=== PATIENT | female | born 1935 | race African-American/Black ===

== ENCOUNTER 2021-08-02 07:07 | Inpatient (IN) | payer OTHER ==
[~2021-08-02] VITALS: Ht 152.4 cm; Wt 47.9 kg
[~2021-08-02 07:07] MED LIST: AMLO5TAB88 PO; ASPI-1497 PO; ATOR10TA PO; CLOP75TA15 PO; LISI10TA26 PO
[2021-08-02 08:12] LABS: BASOPHILS % 0.4 % (0.0-2.0); EOSINOPHILS % 0.6 % (0.0-5.0); HEMATOCRIT. 36.3 % (36.0-48.0); HEMOGLOBIN. 11.9 g/dL (12.0-16.0); LYMPHOCYTES % 7.1 % (20.0-50.0); MEAN CORPUSCULAR VOLUME 91.2 fL (81.0-99.0); MEAN PLATELET VOLUME 8.6 fl (7.4-10.4); MONOCYTES % 5.4 % (2.0-8.0); NEUTROPHILS % 86.5 % (40.0-76.0); PLATELET 167 x1000/uL (130-400); RED BLOOD CELL COUNT 3.98 mill/uL (4.2-5.4); RED CELL DISTRIBUTION WIDTH 13.7 % (11.6-14.6)
[2021-08-02 08:21] LABS: CHLORIDE 108 mEq/L (98-107)
[2021-08-02 08:53] LABS: CLARITY URINE CLEAR (CLEAR); COLOR URINE YELLOW (YELLOW); KETONES URINE NEGATIVE (NEGATIVE); LEUKOCYTE ESTERASE URINE NEGATIVE (NEGATIVE); NITRITE URINE NEGATIVE (NEGATIVE); OCCULT BLOOD URINE NEGATIVE (NEGATIVE); PROTEIN URINE 2+ (NEGATIVE); SPECIFIC GRAVITY URINE 1.022 (1.005-1.030)
[2021-08-02] MEDS ORDERED: MAGNESIUM/ALUMINUM HYDROXIDE/SIMETHICONE 30ML UDC PO PRN (10:45)
[2021-08-02] MEDS ORDERED: DOCUSATE SODIUM 100MG CAPSULE PO PRN (10:45)
[2021-08-02] MEDS ORDERED: ACETAMINOPHEN 325MG TABLET PO PRN (10:45)
[2021-08-02] MEDS ORDERED: IPRATROPIUM/ALBUTEROL 0.5-3(2.5)MG/3ML NEB NEB PRN (10:45)
[2021-08-02] MEDS ORDERED: GUAIFENESIN 200MG/10ML SUGAR FREE UDC PO PRN (10:45)
[2021-08-02] MEDS ORDERED: ONDANSETRON HCL 4MG/2ML INJ IV PRN (10:45)
[2021-08-02] MEDS: ENOXAPARIN 40MG/0.4ML SYR SUBCUT SCH (14:30)
[2021-08-02] MEDS: FAMOTIDINE 20MG TABLET PO SCH (14:34)
[2021-08-02] MEDS: LISINOPRIL 20MG TABLET PO SCH ×2 (14:34→21:40)
[2021-08-02] MEDS: SEVELAMER CARBONATE 800 MG TABLET PO SCH (14:34)
[2021-08-02] MEDS: CLOPIDOGREL 75MG TABLET PO SCH (14:34)
[2021-08-02 18:45] VITALS: BP 179/85
[2021-08-02 20:00] VITALS: BP 174/68
[2021-08-02] MEDS ORDERED: ZOLPIDEM TARTRATE 5MG TABLET PO PRN (21:00)
[2021-08-02] MEDS: CLONIDINE 0.1MG TABLET PO PRN (21:41)
[2021-08-03] VITALS (7 sets, daily range): BP systolic 130–167; BP diastolic 54–73
[2021-08-03 00:10] LABS: *AMPHETAMINES SCREEN URINE NEGATIVE (NEGATIVE); CANNABINOID URINE SCREEN NEGATIVE (NEGATIVE); PHENCYCLIDINE URINE SCREEN NEGATIVE (NEGATIVE)
[2021-08-03 00:11] LABS: *BARBITURATES SCREEN URINE NEGATIVE (NEGATIVE); *BENZODIAZEPINES SCREEN URINE NEGATIVE (NEGATIVE); *COCAINE SCREEN URINE NEGATIVE (NEGATIVE); METHADONE URINE SCREEN NEGATIVE (NEGATIVE); OPIATES URINE SCREEN NEGATIVE (NEGATIVE)
[2021-08-03 01:14] LABS: TOTAL IRON BINDING CAPACITY 244 ug/dL (250-450)
[2021-08-03 01:15] LABS: CREATINE KINASE 204 IU/L (26-192)
[2021-08-03 01:16] LABS: CREATINE KINASE MB FRACTION 2.3 ng/mL (0.5-3.6)
[2021-08-03 01:30] LABS: FOLIC ACID (FOLATE) SERUM 7.2 ng/mL (>5.38)
[2021-08-03 06:31] LABS: BASOPHILS % 0.2 % (0.0-2.0); EOSINOPHILS % 1.6 % (0.0-5.0); HEMATOCRIT. 36.2 % (36.0-48.0); HEMOGLOBIN. 12.3 g/dL (12.0-16.0); LYMPHOCYTES % 19.9 % (20.0-50.0); MEAN CORPUSCULAR HEMOGLOBIN 30.9 pg (28.0-32.0); MEAN CORPUSCULAR VOLUME 91.3 fL (81.0-99.0); MEAN PLATELET VOLUME 8.3 fl (7.4-10.4); MONOCYTES % 9.2 % (2.0-8.0); NEUTROPHILS % 69.1 % (40.0-76.0); PLATELET 172 x1000/uL (130-400); RED BLOOD CELL COUNT 3.96 mill/uL (4.2-5.4); RED CELL DISTRIBUTION WIDTH 13.3 % (11.6-14.6)
[2021-08-03 06:39] LABS: CHLORIDE 108 mEq/L (98-107)
[2021-08-03 06:55] LABS: LDL CHOLESTEROL 84 mg/dL (5-100); PHOSPHORUS 3.5 mg/dL (2.5-4.9)
[2021-08-03 06:57] LABS: CREATINE KINASE 197 IU/L (26-192)
[2021-08-03 06:58] LABS: CREATINE KINASE MB FRACTION 1.7 ng/mL (0.5-3.6); HDL CHOLESTEROL 94 mg/dL (40-59)
[2021-08-03] MEDS: FAMOTIDINE 20MG TABLET PO SCH (08:48)
[2021-08-03] MEDS: SEVELAMER CARBONATE 800 MG TABLET PO SCH ×4 (08:48→17:44)
[2021-08-03] MEDS: CLOPIDOGREL 75MG TABLET PO SCH (08:48)
[2021-08-03] MEDS: LISINOPRIL 20MG TABLET PO SCH ×2 (08:49→20:38)
[2021-08-03] MEDS: ENOXAPARIN 40MG/0.4ML SYR SUBCUT SCH (11:20)
[2021-08-03] MEDS: CLONIDINE 0.1MG TABLET PO PRN ×2 (16:39→23:54)
[2021-08-04 04:00] VITALS: BP 135/59
[2021-08-04] MEDS: SEVELAMER CARBONATE 800 MG TABLET PO SCH ×4 (07:50→17:50)
[2021-08-04 08:00] VITALS: BP 103/74
[2021-08-04] MEDS: LISINOPRIL 20MG TABLET PO SCH ×2 (08:31→21:40)
[2021-08-04] MEDS: FAMOTIDINE 20MG TABLET PO SCH ×2 (08:48→08:55)
[2021-08-04] MEDS: ACETAMINOPHEN 325MG TABLET PO PRN (08:49)
[2021-08-04] MEDS: CLOPIDOGREL 75MG TABLET PO SCH (09:00)
[2021-08-04] MEDS ORDERED: ENOXAPARIN 30MG/0.3ML SYR SUBCUT SCH (09:00)
[2021-08-04 12:00] VITALS: BP 140/59
[2021-08-04] MEDS ORDERED: GENTAMICIN SULF 40MG/ML 2ML VIAL ONE (15:24)
[2021-08-04] MEDS ORDERED: GENTAMICIN/NS IRRIGATION 500 ML IR ONE (15:24)
[2021-08-04] MEDS ORDERED: LIDOCAINE HCL 1% 30ML VIAL (10MG/ML) ONE (15:24)
[2021-08-04] MEDS ORDERED: IODIXANOL 320MG/ML 100 ML BOTTLE IV ONE (15:25)
[2021-08-04] MEDS ORDERED: PROPOFOL 200MG/20ML VIAL IV ONE (15:26)
[2021-08-04] MEDS ORDERED: PROPOFOL 10MG/ML 100ML 100 ML IV ONE (15:26)
[2021-08-04] MEDS ORDERED: MIDAZOLAM HCL 2 MG/2 ML VIAL ONE (15:26)
[2021-08-04] MEDS ORDERED: CEFAZOLIN SODIUM 1000MG/VIAL ONE (15:26)
[2021-08-04] MEDS ORDERED: FENTANYL CITRATE/PF 50MCG/ML 2ML VIAL ONE (15:26)
[2021-08-04] MEDS ORDERED: MIDAZOLAM HCL 5 MG/5 ML VIAL ONE (17:58)
[2021-08-04] MEDS ORDERED: FENTANYL CITRATE/PF 50MCG/ML 5ML VIAL ONE (17:59)
[2021-08-04] MEDS ORDERED: HYDROMORPHONE HCL/PF 2MG/ML CPJ IV PRN (18:15)
[2021-08-04] MEDS ORDERED: HYDROCODONE/ACETAMINOPHEN 5/325MG TABLET PO PRN (18:15)
[2021-08-04] MEDS: CLONIDINE 0.1MG TABLET PO PRN (19:06)
[2021-08-04] MEDS ORDERED: NALOXONE HCL 0.4MG/ML VIAL IV PRN (19:45)
[2021-08-04 20:00] VITALS: BP 149/89
[2021-08-04 22:00] VITALS: BP 162/74
[2021-08-05] VITALS (12 sets, daily range): BP systolic 112–174; BP diastolic 49–100
[2021-08-05] MEDS: CLONIDINE 0.1MG TABLET PO PRN ×2 (05:55→17:30)
[2021-08-05 06:56] LABS: BASOPHILS % 0.1 % (0.0-2.0); EOSINOPHILS % 0.1 % (0.0-5.0); HEMATOCRIT. 33.7 % (36.0-48.0); HEMOGLOBIN. 11.2 g/dL (12.0-16.0); LYMPHOCYTES % 7.8 % (20.0-50.0); MEAN CORPUSCULAR HEMOGLOBIN 30.2 pg (28.0-32.0); MEAN CORPUSCULAR VOLUME 90.7 fL (81.0-99.0); MEAN PLATELET VOLUME 8.7 fl (7.4-10.4); MONOCYTES % 7.7 % (2.0-8.0); NEUTROPHILS % 84.3 % (40.0-76.0); PLATELET 166 x1000/uL (130-400); RED BLOOD CELL COUNT 3.71 mill/uL (4.2-5.4); RED CELL DISTRIBUTION WIDTH 13.4 % (11.6-14.6)
[2021-08-05] MEDS: SEVELAMER CARBONATE 800 MG TABLET PO SCH ×2 (08:52→12:20)
[2021-08-05] MEDS: CLOPIDOGREL 75MG TABLET PO SCH (08:52)
[2021-08-05] MEDS: FAMOTIDINE 20MG TABLET PO SCH (08:53)
[2021-08-05] MEDS: LISINOPRIL 20MG TABLET PO SCH ×2 (08:54→20:13)
[2021-08-05] MEDS: ACETAMINOPHEN 325MG TABLET PO PRN (20:12)
[2021-08-06] VITALS (12 sets, daily range): BP systolic 108–180; BP diastolic 50–92
[2021-08-06] MEDS: CLONIDINE 0.1MG TABLET PO PRN (02:51)
[2021-08-06] MEDS: HYDRALAZINE 20MG/ML VIAL IV PRN ×2 (03:55→15:54)
[2021-08-06] MEDS: ACETAMINOPHEN 325MG TABLET PO PRN ×3 (07:40→22:35)
[2021-08-06] MEDS: CLOPIDOGREL 75MG TABLET PO SCH (07:41)
[2021-08-06] MEDS: LISINOPRIL 20MG TABLET PO SCH ×2 (07:41→20:32)
[2021-08-06] MEDS: FAMOTIDINE 20MG TABLET PO SCH (07:41)
[2021-08-06] MEDS: HYDRALAZINE HCL 50MG TABLET PO SCH ×2 (13:15→22:35)
[2021-08-06] MEDS: NITROGLYCERIN 0.4MG TABLET SL SL PRN ×3 (16:49→18:44)
[2021-08-06 17:17] LABS: HEMATOCRIT 37.7 % (36.0-48.0); HEMOGLOBIN 12.3 g/dL (12.0-16.0); MEAN CORPUSCULAR HEMOGLOBIN 29.9 pg (28.0-32.0); MEAN CORPUSCULAR VOLUME 91.5 fL (81.0-99.0); PLATELET 174 x1000/uL (130-400); RED BLOOD CELL COUNT 4.11 mill/uL (4.2-5.4); RED CELL DISTRIBUTION WIDTH 13.4 % (11.6-14.6)
[2021-08-06] MEDS: NITROGLYCERIN OINT 1GM/INCH UDPKT TD SCH ×2 (18:20→23:14)
[2021-08-06] MEDS ORDERED: NITROGLYCERIN OINT 1GM/INCH UDPKT TD ONE (18:30)
[2021-08-06] MEDS: METOPROLOL TARTRATE 25MG TABLET PO SCH (18:44)
[2021-08-07] VITALS (10 sets, daily range): BP systolic 100–144; BP diastolic 50–79
[2021-08-07] MEDS: HYDRALAZINE HCL 50MG TABLET PO SCH ×3 (05:26→21:05)
[2021-08-07] MEDS: NITROGLYCERIN OINT 1GM/INCH UDPKT TD SCH (05:27)
[2021-08-07] MEDS: METOPROLOL TARTRATE 25MG TABLET PO SCH ×3 (06:25→21:05)
[2021-08-07] MEDS: CLOPIDOGREL 75MG TABLET PO SCH (08:27)
[2021-08-07] MEDS: FAMOTIDINE 20MG TABLET PO SCH (08:27)
[2021-08-07] MEDS: LISINOPRIL 20MG TABLET PO SCH (08:28)
[2021-08-07] MEDS: ISOSORBIDE MONONITRATE 30MG TABLET SR 24HR PO SCH (12:15)
[2021-08-08] VITALS: BP 137/71
[2021-08-08 04:00] VITALS: BP 140/70
[2021-08-08] MEDS: HYDRALAZINE HCL 50MG TABLET PO SCH ×2 (05:12→13:26)
[2021-08-08 08:09] VITALS: BP 108/65
[2021-08-08] MEDS: METOPROLOL TARTRATE 25MG TABLET PO SCH (08:10)
[2021-08-08] MEDS: ISOSORBIDE MONONITRATE 30MG TABLET SR 24HR PO SCH (08:11)
[2021-08-08] MEDS: CLOPIDOGREL 75MG TABLET PO SCH (08:11)
[2021-08-08] MEDS: FAMOTIDINE 20MG TABLET PO SCH (08:11)
[2021-08-08 10:09] VITALS: BP 126/67
[2021-08-08 11:41] VITALS: BP 106/60
== END 2021-08-08 15:25 | disposition home or self-care (01) | DRG 242 ==
LOC: ER 07:07 → MICUSO 08:39 → EDBEDREQSVC 08:43 → EDBEDREQTM 08:43 → EDBEDREQ 08:43 → SUPCPDRO 10:33 → ER 11:01 → 6WST 19:21 → 3WST 08-04 19:27
PROVIDERS: ADMIT Internal Medicine; ATTEND Internal Medicine
PROC: 0JH606Z Insertion of Pacemaker, Dual Chamber into Chest Subcutaneous Tissue and Fascia, Open Approach (ICD-10-PCS; principal; 2021-08-04)
PROC: 02H63JZ Insertion of Pacemaker Lead into Right Atrium, Percutaneous Approach (ICD-10-PCS; 2021-08-04)
PROC: 02HK3JZ Insertion of Pacemaker Lead into Right Ventricle, Percutaneous Approach (ICD-10-PCS; 2021-08-04)
PROC: B517YZZ Fluoroscopy of Left Subclavian Vein using Other Contrast (ICD-10-PCS; 2021-08-04)
DX: I49.5 Sick sinus syndrome (principal); I21.4 Non-ST elevation (NSTEMI) myocardial infarction; E46 Unspecified protein-calorie malnutrition; I10 Essential (primary) hypertension; D63.8 Anemia in other chronic diseases classified elsewhere; Z20.822 Contact with and (suspected) exposure to COVID-19; J44.9 Chronic obstructive pulmonary disease, unspecified; E78.00 Pure hypercholesterolemia, unspecified; Z88.6 Allergy status to analgesic agent; Z88.0 Allergy status to penicillin; Z79.899 Other long term (current) drug therapy; Z79.82 Long term (current) use of aspirin; Z68.20 Body mass index [BMI] 20.0-20.9, adult; Z95.0 Presence of cardiac pacemaker
CPT/HCPCS: 33208; 36415; 70551; 71045; 75820; 80048; 80053; 80061; 80305; 81003; 82550; 82553; 82607; 82746; 83036; 83540; 83550; 83605; 83735; 84100; 84145; 84443; 84484; 85025; 85027; 85379; 87426; 93005; 93306; 93970; 97116; 97162; 97165; 99285; C1785; C1893; C1898; J0360; J0690; J1170; J1580; J1650; J2250; J2704; J3010; J3490; J7040; Q9967